=== PATIENT | female | born 1965 | race Caucasian/White ===

== ENCOUNTER 2022-06-04 14:55 | Outpatient (CLI) | payer OTHER, SELFPAY ==
[2022-06-04 21:37] LABS: Chloride* 106 mmol/L (96-114); Sodium* 138 mmol/L (135-149)
[2022-06-04 21:40] LABS: Carbon Dioxide* 24 mmol/L (20-32); Creatinine* 0.7 mg/dL (0.5-1.5); Estimated Glomerular Filt Rate 101 ml/min
[2022-06-04 21:41] LABS: Blood Urea Nitrogen* 12 mg/dL (7-30); Calcium* 9.1 mg/dL (8.4-10.6); Glucose* 102 mg/dL (60-115)
== END 2022-06-04 14:56 | disposition home or self-care (01) ==
LOC: LKVREF 14:56
PROVIDERS: PCP Family Medicine; Visit Provider Emergency Medicine
DX: Z01.818 Encounter for other preprocedural examination (principal)
CPT/HCPCS: 80048

== ENCOUNTER 2022-06-21 09:08 | Outpatient (CLI) | payer OTHER, SELFPAY ==
--- NOTE | 2022-06-21 10:14 | W.ANESCHARGE ---
Anesthesia Charges Start Date/Time Anesthesia Start Date: 06/21/22 Anesthesia Start Time: 09:50 Stop Date/Time Anesthesia Stop Date: 06/21/22 Anesthesia Stop Time: 10:15 Summary Emergency: No
--- NOTE | 2022-06-21 10:17 | W.ANESCHARGE ---
Anesthesia Charges Start Date/Time Anesthesia Start Date: 06/21/22 Anesthesia Start Time: 09:50 Stop Date/Time Anesthesia Stop Date: 06/21/22 Anesthesia Stop Time: 10:15 Summary Emergency: No
== END 2022-06-21 09:09 | disposition home or self-care (01) ==
LOC: OP CLINIC 09:11
PROVIDERS: PCP Family Medicine; Visit Provider Internal Medicine
DX: Z12.11 Encounter for screening for malignant neoplasm of colon (principal); K57.30 Diverticulosis of large intestine without perforation or abscess without bleeding; Z86.010 Personal history of colon polyps
CPT/HCPCS: 00811; 00812; 45378

== ENCOUNTER 2022-09-04 15:30 | Outpatient (CLI) | payer OTHER, SELFPAY ==
[2022-09-04 14:21] LABS: Cholesterol* 177 mg/dL (90-199); Triglycerides* 74 mg/dL (40-149)
[2022-09-04 14:22] LABS: HDL Cholesterol* 68 mg/dL (>=50); LDL Cholesterol Calculated 94 mg/dL (<100)
== END 2022-09-04 15:31 | disposition home or self-care (01) ==
PROVIDERS: PCP Family Medicine; Visit Provider Family Medicine
DX: E78.00 Pure hypercholesterolemia, unspecified (principal)
CPT/HCPCS: 80061

== ENCOUNTER 2022-11-18 10:04 | Outpatient (RCR) | payer OTHER, SELFPAY | END 2023-05-01 23:59 | disposition home or self-care (01) | PROVIDERS: PCP Family Medicine; Visit Provider Family Medicine | DX: M70.61 Trochanteric bursitis, right hip (principal); M54.9 Dorsalgia, unspecified; M79.661 Pain in right lower leg; M25.551 Pain in right hip; Z51.89 Encounter for other specified aftercare | CPT/HCPCS: 97110; 97161 ==

== ENCOUNTER 2023-04-14 14:16 | Outpatient (CLI) | payer OTHER, SELFPAY | END 2023-04-14 14:17 | disposition home or self-care (01) | LOC: NFLDREF 04-17 07:36 | PROVIDERS: PCP Family Medicine; Referring Provider Family Medicine; Visit Provider Physician Assistant | DX: M54.9 Dorsalgia, unspecified (principal); M54.50 Low back pain, unspecified | CPT/HCPCS: 87086 ==

== ENCOUNTER 2024-10-29 11:03 | Outpatient (CLI) | payer OTHER, SELFPAY | END 2024-10-29 11:04 | disposition home or self-care (01) | PROVIDERS: PCP Family Medicine; Visit Provider Family Medicine | DX: I10 Essential (primary) hypertension (principal); E78.00 Pure hypercholesterolemia, unspecified | CPT/HCPCS: 80061; 80076 ==

== ENCOUNTER 2025-02-11 10:04 | Outpatient (CLI) | payer OTHER, SELFPAY ==
--- NOTE | 2025-02-11 10:15 | CRLHL7_ITS ---
For Patients: As a result of the Century Cures Act, medical imaging exams and procedure reports are released immediately into your electronic medical record. You may view this report before your referring provider. If you have questions, please contact your health care provider. INDICATION: BILATERAL SCREENING MAMMOGRAM, ASYMPTOMATIC 59 Y/O FEMALE COMPARISON: 10/04/2020, 09/01/2019, 07/07/2018 TECHNIQUE: Digital mammogram in CC and MLO projections including computer-aided detection (CAD) and tomosynthesis. BREAST COMPOSITION: There are scattered areas of fibroglandular density. FINDINGS: No suspicious findings. ASSESSMENT: BI-RADS 1 Negative RECOMMENDATION: Annual screening mammogram. A lay language report of this examination will be provided to the patient. Dictated by: Chip Prasad MD @ 02/21/2025 12:22:42 (Electronically Signed)
== END 2025-02-11 10:05 | disposition home or self-care (01) ==
LOC: MAMMO 10:05
PROVIDERS: PCP Family Medicine; Visit Provider Family Medicine
DX: Z12.31 Encounter for screening mammogram for malignant neoplasm of breast (principal)
CPT/HCPCS: 77063; 77067